=== PATIENT | male | born 1960 ===

== ENCOUNTER 2021-07-08 00:41 | Emergency (ER) | payer OTHER, SELFPAY ==
[2021-07-08 01:19] LABS: #Basophils 0.1 thou/uL (0.0-0.2); #Eosinphils 0.3 thou/uL (0.0-0.7); #Lymphocytes 4.1 thou/uL (1.20-3.40); #Monocytes 0.5 thou/uL (0.11-0.59); #Neutrophils 3.6 thou/uL (1.40-6.50); %Basophils 1.1 % (0.0-1.0); %Eosinophils 3.6 % (0.0-10.0); %Lymphocytes 48.1 % (21.0-51.0); %Monocytes 5.5 % (0.0-10.0); %Neutrophils 41.6 % (42.0-75.0); Hemoglobin 14.9 g/dL (14.0-18.0); Mean Corpuscular HGB CONC 33.4 g/dL (32.0-36.0); Mean Corpuscular Hemoglobin 33.8 pg (27.0-31.0); Mean Platelet Volume 6.8 fL (7.4-10.4); Platelet Count 382 thou/uL (130-400); RBC Distribution Width 13.2 % (11.5-14.5); Red Blood Cell (RBC) Count 4.41 mill/uL (4.70-6.10); White Blood Cell (WBC) Count 8.6 thou/uL (4.8-10.8)
[2021-07-08 02:08] LABS: ALT (SGPT) 29 U/L (8-55); AST (SGOT) 39 U/L (5-34); Albumin 3.8 g/dL (3.5-5.0); Alkaline Phosphatase 51 U/L (40-110); Anion Gap 16 mmol/L (10-20); BUN (Urea Nitrogen) 9 mg/dL (8.4-25.7); Calc. Creatinine Clearance 0 mL/min (70-130); Calcium 9.5 mg/dL (7.8-10.44); Carbon Dioxide 24 mmol/L (22-29); Chloride 111 mmol/L (98-107); Globulin 3.6 g/dL (2.4-3.5); Glucose 114 mg/dL (70-105); Potassium 4.1 mmol/L (3.5-5.1); Protein, Total 7.4 g/dL (6.0-8.3); Sodium 147 mmol/L (136-145)
[2021-07-08 03:28] LABS: Bilirubin, Total Less than 0.2 mg/dL (0.2-1.2)
[2021-07-08 04:55] LABS: Lactic Acid 1.6 mmol/L (0.5-2.2)
== END 2021-07-08 05:10 | disposition home or self-care (01) ==
LOC: ERS 00:41
DX: S06.9X9A Unspecified intracranial injury with loss of consciousness of unspecified duration, initial encounter (principal); G89.29 Other chronic pain; M79.605 Pain in left leg; M79.604 Pain in right leg; I10 Essential (primary) hypertension; E03.9 Hypothyroidism, unspecified; F17.210 Nicotine dependence, cigarettes, uncomplicated; X58.XXXA Exposure to other specified factors, initial encounter
CPT/HCPCS: 36415; 70450; 72125; 80053; 83605; 85025; 85652; 86140

== ENCOUNTER 2022-05-05 21:06 | Emergency (ER) | payer OTHER ==
[2022-05-05] MEDS ORDERED: HYDROcodone/Acetaminophen 5/325 mg Tablet ONE (22:42)
== END 2022-05-06 09:12 | disposition home or self-care (01) ==
LOC: ERS 21:06
DX: M25.551 Pain in right hip (principal); I10 Essential (primary) hypertension; E03.9 Hypothyroidism, unspecified; J44.9 Chronic obstructive pulmonary disease, unspecified; F17.210 Nicotine dependence, cigarettes, uncomplicated; W18.30XA Fall on same level, unspecified, initial encounter
CPT/HCPCS: 72170

== ENCOUNTER 2022-10-18 13:37 | Inpatient (IN) | payer OTHER ==
[~2022-10-18 13:37] MED LIST: Iopamidol-370 76% 500 ML MDV (1 ML CHARGE) ONE
[2022-10-18 14:18] LABS: #Basophils 0.1 thou/uL (0.0-0.2); #Eosinphils 0.2 thou/uL (0.0-0.7); #Monocytes 0.3 thou/uL (0.11-0.59); #Neutrophils 1.7 thou/uL (1.40-6.50); %Basophils 1.4 % (0.0-1.0); %Lymphocytes 47.8 % (21.0-51.0); %Monocytes 7.7 % (0.0-10.0); %Neutrophils 38.9 % (42.0-75.0); Hematocrit 36.8 % (42.0-52.0); Mean Corpuscular HGB CONC 35.3 g/dL (32.0-36.0); Mean Corpuscular Hemoglobin 34.1 pg (27.0-31.0); Mean Corpuscular Volume 96.6 fl (78.0-98.0); Mean Platelet Volume 8.9 fL (7.4-10.4); Platelet Count 232 10x3/uL (130-400); RBC Distribution Width 16.3 % (11.5-14.5); Red Blood Cell (RBC) Count 3.81 mill/uL (4.70-6.10); White Blood Cell (WBC) Count 4.3 10x3/uL (4.8-10.8)
[2022-10-18 14:40] LABS: ALT (SGPT) 53 U/L (8-55); AST (SGOT) 143 U/L (5-34); Albumin 4.3 g/dL (3.5-5.0); Alkaline Phosphatase 57 U/L (40-110); Anion Gap 15 mmol/L (10-20); BUN (Urea Nitrogen) 8 mg/dL (8.4-25.7); Bilirubin, Total 0.3 mg/dL (0.2-1.2); Calc. Creatinine Clearance 0 mL/min (70-130); Calcium 9.2 mg/dL (7.8-10.44); Carbon Dioxide 22 mmol/L (22-29); Chloride 102 mmol/L (98-107); Estimated GFR 67; Globulin 3.9 g/dL (2.4-3.5); Glucose 79 mg/dL (70-105); Potassium 4.1 mmol/L (3.5-5.1); Protein, Total 8.2 g/dL (6.0-8.3); Sodium 135 mmol/L (136-145)
[2022-10-18 18:40] LABS: Acetaminophen Less than 10 mcg/mL (10.0-30.0); Alcohol 225.2 mg/dL (Less than 10); Salicylate Less than 8.0 mg/dL (15.0-30.0)
[2022-10-18 18:49] LABS: Amphetamine Not Detected (NotDetected); Barbiturates Screen Not Detected (NotDetected); Benzodiazepine Screen Not Detected (NotDetected); Cocaine Metabolite Screen Not Detected (NotDetected); Methadone Not Detected (NotDetected); Methamphetamine Not Detected (NotDetected); Opiate Screen Not Detected (NotDetected); Oxycodone Screen Not Detected (NotDetected); Phencyclidine (PCP) Not Detected (NotDetected); THC/Cannabinoid Screen Not Detected (NotDetected); Tricyclic Screen Not Detected (NotDetected)
[2022-10-18 18:49] LABS: Bacteria/HPF 4+ HPF (None Seen); Bilirubin Negative (Negative); Blood, Urine Negative (Negative); CAUTI Indications for Culture Pelvic or flank pain; Clarity Clear (Clear); Glucose, Urine (Dipstick) Normal (Negative); Ketone, Urine Negative (Negative); Leukocyte 75 Leu/uL (Negative); Nitrite 2+ (Negative); Protein, Urine (Dipstick) Negative (Neg-Trace); RBC/HPF 0-3 HPF (0-3); Specific Gravity, Urine 1.005 (1.002-1.036); Squamous Epithelial 0-3 HPF (0-3); Urobilinogen Normal mg/dL (Less than 2); pH, Urine 6.5 (5.0-9.0)
[2022-10-18 18:50] LABS: Urine Culture Reflex No No
[2022-10-18] MEDS ORDERED: Loperamide HCl 2 MG CAP PO PRN ×2 (19:16)
[2022-10-18] MEDS ORDERED: Lorazepam 2 MG/ML VIAL IM PRN (19:16)
[2022-10-18] MEDS ORDERED: Ondansetron ODT 4 MG TAB PO PRN (19:16)
[2022-10-18] MEDS ORDERED: Lorazepam 1 MG TAB PO PRN (19:16)
[2022-10-18] MEDS ORDERED: Electrolyte Replacement Protocol 1 EACH FS SCH (19:30)
[2022-10-18 20:06] VITALS: BMI 28.8
[2022-10-18] MEDS ORDERED: Sodium Chloride 0.9% 1,000 ML IV SCH (20:30)
[2022-10-18] MEDS: cefTRIAXone\\ROCEPHIN 1 GM in Sodium Chloride 0.9% 100 ML IVPB SCH (20:31)
[2022-10-18] MEDS: Thiamine HCl 200 MG/2 ML VIAL SLOW IVP SCH (20:32)
[2022-10-18] MEDS: Famotidine 20 MG TAB PO SCH (20:32)
[2022-10-18 20:52] LABS: Magnesium 1.8 mg/dL (1.6-2.6); Phosphorus 2.1 mg/dL (2.3-4.7)
[2022-10-18 22:11] LABS: SARS-CoV-2 NAA Rapid Test Not Detected (NotDetected)
[2022-10-19] MEDS: Melatonin 3 MG TAB PO PRN (00:12)
[2022-10-19] MEDS ORDERED: Magnesium 2 GM/50 ML(in water) 2 GM in Premix Bag 1 BAG IVPB SCH (08:00)
[2022-10-19 08:17] LABS: #Basophils 0.1 thou/uL (0.0-0.2); #Eosinphils 0.1 thou/uL (0.0-0.7); #Monocytes 0.4 thou/uL (0.11-0.59); #Neutrophils 3.6 thou/uL (1.40-6.50); %Basophils 0.8 % (0.0-1.0); %Eosinophils 1.7 % (0.0-10.0); %Lymphocytes 30.2 % (21.0-51.0); %Monocytes 6.8 % (0.0-10.0); %Neutrophils 60.2 % (42.0-75.0); Hematocrit 36.7 % (42.0-52.0); Hemoglobin 12.9 g/dL (14.0-18.0); Mean Corpuscular HGB CONC 35.1 g/dL (32.0-36.0); Mean Corpuscular Hemoglobin 33.3 pg (27.0-31.0); Mean Corpuscular Volume 94.8 fl (78.0-98.0); Mean Platelet Volume 9.2 fL (7.4-10.4); Platelet Count 210 10x3/uL (130-400); RBC Distribution Width 15.9 % (11.5-14.5); Red Blood Cell (RBC) Count 3.87 mill/uL (4.70-6.10); White Blood Cell (WBC) Count 6.1 10x3/uL (4.8-10.8)
[2022-10-19 08:23] LABS: Hemoglobin A1c 4.9 % (4.0-6.0)
[2022-10-19 08:32] LABS: Anion Gap 17 mmol/L (10-20); BUN (Urea Nitrogen) 7 mg/dL (8.4-25.7); Calc. Creatinine Clearance 86 mL/min (70-130); Calcium 9.4 mg/dL (7.8-10.44); Carbon Dioxide 22 mmol/L (22-29); Chloride 103 mmol/L (98-107); Estimated GFR 64; Glucose 114 mg/dL (70-105); Potassium 4.8 mmol/L (3.5-5.1); Sodium 137 mmol/L (136-145)
[2022-10-19] MEDS ORDERED: Multivit, Therapeutic 1 TAB PO SCH (09:00)
[2022-10-19] MEDS: Folic Acid 1 MG TAB PO SCH (09:49)
[2022-10-19] MEDS: Famotidine 20 MG TAB PO SCH ×2 (09:49→20:56)
[2022-10-19] MEDS: Lorazepam 2 MG/ML VIAL SLOW IVP SCH ×2 (11:30→17:56)
[2022-10-19] MEDS: Multivitamins, Adult 10 ML, Folic Acid 1 MG, Thiamine HCl 100 MG in Dextrose 5 %-0.45 %... IV SCH (11:30)
[2022-10-19 11:50] LABS: Syphilis Antibody Nonreactive (Nonreactive); Syphilis Antibody Index 0.14 S/CO (<1.00 Non-Reactive)
[2022-10-19] MEDS ORDERED: Lorazepam 1 MG TAB PO PRN (19:16)
[2022-10-19] MEDS: Thiamine HCl 200 MG/2 ML VIAL SLOW IVP SCH (20:56)
[2022-10-19] MEDS: cefTRIAXone\\ROCEPHIN 1 GM in Sodium Chloride 0.9% 100 ML IVPB SCH (20:57)
[2022-10-20] MEDS: Lorazepam 2 MG/ML VIAL SLOW IVP SCH ×5 (00:49→23:53)
[2022-10-20 07:42] LABS: #Eosinphils 0.2 thou/uL (0.0-0.7); #Monocytes 0.4 thou/uL (0.11-0.59); #Neutrophils 2.5 thou/uL (1.40-6.50); %Basophils 0.8 % (0.0-1.0); %Eosinophils 2.9 % (0.0-10.0); %Monocytes 7.6 % (0.0-10.0); %Neutrophils 48.3 % (42.0-75.0); Hematocrit 36.8 % (42.0-52.0); Mean Corpuscular HGB CONC 35.3 g/dL (32.0-36.0); Mean Corpuscular Hemoglobin 33.9 pg (27.0-31.0); Mean Corpuscular Volume 95.8 fl (78.0-98.0); Mean Platelet Volume 9.8 fL (7.4-10.4); Platelet Count 180 10x3/uL (130-400); RBC Distribution Width 15.6 % (11.5-14.5); Red Blood Cell (RBC) Count 3.84 mill/uL (4.70-6.10); White Blood Cell (WBC) Count 5.3 10x3/uL (4.8-10.8)
[2022-10-20 08:07] LABS: ALT (SGPT) 45 U/L (8-55); AST (SGOT) 91 U/L (5-34); Albumin 3.9 g/dL (3.5-5.0); Alkaline Phosphatase 60 U/L (40-110); Anion Gap 15 mmol/L (10-20); BUN (Urea Nitrogen) 7 mg/dL (8.4-25.7); Bilirubin, Total 0.4 mg/dL (0.2-1.2); Calc. Creatinine Clearance 96 mL/min (70-130); Calcium 9.6 mg/dL (7.8-10.44); Carbon Dioxide 23 mmol/L (22-29); Chloride 100 mmol/L (98-107); Estimated GFR 73; Globulin 3.9 g/dL (2.4-3.5); Glucose 80 mg/dL (70-105); Potassium 4.1 mmol/L (3.5-5.1); Protein, Total 7.8 g/dL (6.0-8.3); Sodium 134 mmol/L (136-145)
[2022-10-20] MEDS: Famotidine 20 MG TAB PO SCH ×2 (08:15→20:51)
[2022-10-20] MEDS: Folic Acid 1 MG TAB PO SCH (08:15)
[2022-10-20] MEDS ORDERED: hydrALAZINE 20 MG/ML VIAL SLOW IVP SCH (08:30)
[2022-10-20 11:18] LABS: Campy jejuni + coli by PCR Negative (Negative); STEC Shiga Toxin 1+2 Negative (Negative); Salmonella spp. by PCR Negative (Negative); Shigella spp + EIEC by PCR Negative (Negative)
[2022-10-20] MEDS: Multivitamins, Adult 10 ML, Folic Acid 1 MG, Thiamine HCl 100 MG in Dextrose 5 %-0.45 %... IV SCH (12:11)
[2022-10-20] MEDS ORDERED: Lorazepam 1 MG TAB PO PRN (19:16)
[2022-10-20] MEDS: Thiamine HCl 200 MG/2 ML VIAL SLOW IVP SCH (20:51)
[2022-10-20] MEDS: cefTRIAXone\\ROCEPHIN 1 GM in Sodium Chloride 0.9% 100 ML IVPB SCH (20:52)
[2022-10-21] MEDS: Lorazepam 2 MG/ML VIAL SLOW IVP SCH ×3 (06:14→17:42)
[2022-10-21 07:15] LABS: ALT (SGPT) 35 U/L (8-55); AST (SGOT) 62 U/L (5-34); Alkaline Phosphatase 56 U/L (40-110); Anion Gap 13 mmol/L (10-20); BUN (Urea Nitrogen) 8 mg/dL (8.4-25.7); Bilirubin, Total 0.2 mg/dL (0.2-1.2); Calc. Creatinine Clearance 86 mL/min (70-130); Calcium 9.7 mg/dL (7.8-10.44); Carbon Dioxide 25 mmol/L (22-29); Chloride 97 mmol/L (98-107); Estimated GFR 63; Globulin 3.7 g/dL (2.4-3.5); Glucose 86 mg/dL (70-105); Potassium 3.6 mmol/L (3.5-5.1); Protein, Total 7.7 g/dL (6.0-8.3); Sodium 131 mmol/L (136-145)
[2022-10-21] MEDS: Famotidine 20 MG TAB PO SCH ×2 (08:02→20:14)
[2022-10-21] MEDS: Acetaminophen 325 MG TAB PO PRN ×2 (08:02→20:15)
[2022-10-21] MEDS: Folic Acid 1 MG TAB PO SCH (08:02)
[2022-10-21] MEDS: hydrALAZINE 20 MG/ML VIAL SLOW IVP PRN ×2 (08:09→17:16)
[2022-10-21] MEDS: Multivitamins, Adult 10 ML, Folic Acid 1 MG, Thiamine HCl 100 MG in Dextrose 5 %-0.45 %... IV SCH (12:05)
[2022-10-21] MEDS ORDERED: Metoprolol Tartrate 25 MG TAB PO SCH (14:00)
[2022-10-21] MEDS ORDERED: Nicotine 14 MG PATCH TOP SCH (17:00)
[2022-10-21] MEDS ORDERED: Lorazepam 0.5 MG TAB PO PRN (19:16)
[2022-10-21] MEDS ORDERED: Thiamine 100 MG TAB PO SCH (19:30)
[2022-10-21] MEDS: cefTRIAXone\\ROCEPHIN 1 GM in Sodium Chloride 0.9% 100 ML IVPB SCH (20:13)
[2022-10-21] MEDS: Metoprolol Tartrate 25 MG TAB PO SCH (20:15)
[2022-10-21] MEDS: Melatonin 3 MG TAB PO PRN (21:20)
[2022-10-22] MEDS: Lorazepam 2 MG/ML VIAL SLOW IVP SCH ×4 (00:06→18:05)
[2022-10-22] MEDS: hydrALAZINE 20 MG/ML VIAL SLOW IVP PRN (06:10)
[2022-10-22] MEDS: Multivitamin W/ Minerals 1 TAB PO SCH (08:16)
[2022-10-22] MEDS: Metoprolol Tartrate 25 MG TAB PO SCH ×2 (08:16→21:08)
[2022-10-22] MEDS: Thiamine 100 MG TAB PO SCH (08:16)
[2022-10-22] MEDS: Famotidine 20 MG TAB PO SCH ×2 (08:16→21:07)
[2022-10-22] MEDS: Folic Acid 1 MG TAB PO SCH (08:16)
[2022-10-22] MEDS: Nicotine 14 MG PATCH TOP SCH (18:04)
[2022-10-22] MEDS: cefTRIAXone\\ROCEPHIN 1 GM in Sodium Chloride 0.9% 100 ML IVPB SCH (21:07)
[2022-10-23] MEDS: Lorazepam 2 MG/ML VIAL SLOW IVP SCH ×2 (01:18→06:51)
[2022-10-23] MEDS: Famotidine 20 MG TAB PO SCH ×2 (08:03→20:42)
[2022-10-23] MEDS: Metoprolol Tartrate 25 MG TAB PO SCH ×2 (08:03→20:43)
[2022-10-23] MEDS: Multivitamin W/ Minerals 1 TAB PO SCH (08:03)
[2022-10-23] MEDS: Thiamine 100 MG TAB PO SCH (08:03)
[2022-10-23] MEDS: Folic Acid 1 MG TAB PO SCH (08:03)
[2022-10-23] MEDS ORDERED: Lorazepam 2 MG/ML VIAL SLOW IVP PRN (10:24)
[2022-10-23] MEDS: Nicotine 14 MG PATCH TOP SCH (17:31)
[2022-10-23] MEDS: Melatonin 3 MG TAB PO PRN (20:42)
[2022-10-23] MEDS: Acetaminophen 325 MG TAB PO PRN (20:43)
[2022-10-24] MEDS: Thiamine 100 MG TAB PO SCH (08:53)
[2022-10-24] MEDS: Metoprolol Tartrate 25 MG TAB PO SCH (08:53)
[2022-10-24] MEDS: Multivitamin W/ Minerals 1 TAB PO SCH (08:53)
[2022-10-24] MEDS: Folic Acid 1 MG TAB PO SCH (08:53)
[2022-10-24] MEDS: Famotidine 20 MG TAB PO SCH (08:53)
[2022-10-24 10:41] LABS: Thyroid Stimulating Hormone 56.4921 uIU/mL (0.35-4.94)
[2022-10-24 17:16] VITALS: TEMP 98.6
[2022-10-24 17:17] VITALS: BP 155/85
== END 2022-10-24 17:10 | disposition home or self-care (01) | DRG 897 ==
LOC: ERS 13:37 → T4-A 18:27 → OBSVTOIN 10-19 08:57
PROVIDERS: ADMIT Family Medicine; ATTEND Family Medicine
DX: F10.129 Alcohol abuse with intoxication, unspecified (principal); N39.0 Urinary tract infection, site not specified; K52.9 Noninfective gastroenteritis and colitis, unspecified; E11.9 Type 2 diabetes mellitus without complications; F31.9 Bipolar disorder, unspecified; E03.9 Hypothyroidism, unspecified; I10 Essential (primary) hypertension; J44.9 Chronic obstructive pulmonary disease, unspecified; Z90.49 Acquired absence of other specified parts of digestive tract; Z98.890 Other specified postprocedural states; F17.210 Nicotine dependence, cigarettes, uncomplicated; Z88.5 Allergy status to narcotic agent; Z20.822 Contact with and (suspected) exposure to COVID-19; R74.01 Elevation of levels of liver transaminase levels
CPT/HCPCS: 36415; 36416; 74177; 80048; 80053; 80306; 80307; 81001; 82607; 83036; 83690; 83735; 84100; 84443; 85025; 86780; 87324; 87328; 87329; 87449; 87505; J0360; J0696; J2060; J3411; J3475; J3490; J7042; J7050; Q0162; Q9967

== ENCOUNTER 2023-08-13 15:39 | Emergency (ER) | payer OTHER ==
[2023-08-13 17:28] LABS: Alcohol Less than 10.0 mg/dL (Less than 10)
[2023-08-13 17:31] LABS: #Basophils Less than 0.03 10x3/uL (0.0-0.2); #Eosinphils Less than 0.03 10x3/uL (0.0-0.7); %Basophils 0.1 % (0.0-1.0); %Eosinophils 0.3 % (0.0-10.0); %Lymphocytes 21.7 % (21.0-51.0); %Neutrophils 73.5 % (42.0-75.0); ALT (SGPT) 52 U/L (8-55); AST (SGOT) 99 U/L (5-34); Albumin 3.8 g/dL (3.4-4.8); Alkaline Phosphatase 87 U/L (40-110); Anion Gap 16 mmol/L (10-20); BUN (Urea Nitrogen) 5 mg/dL (8.4-25.7); Bilirubin, Total 0.6 mg/dL (0.2-1.2); Calc. Creatinine Clearance 0 mL/min (70-130); Calcium 8.6 mg/dL (7.8-10.44); Carbon Dioxide 28 mmol/L (23-31); Chloride 91 mmol/L (98-107); Estimated GFR 83; Globulin 3.8 g/dL (2.4-3.5); Glucose 100 mg/dL (80-115); Hematocrit 39.2 % (42.0-52.0); Hemoglobin 14.6 g/dL (14.0-18.0); Lipase 128 U/L (8-78); Mean Corpuscular HGB CONC 37.2 g/dL (32.0-36.0); Mean Corpuscular Hemoglobin 31.9 pg (27.0-31.0); Mean Corpuscular Volume 85.6 fL (78.0-98.0); Mean Platelet Volume 10.4 fL (7.4-10.4); Platelet Count 97 10x3/uL (130-400); Potassium 3.8 mmol/L (3.5-5.1); Protein, Total 7.6 g/dL (5.8-8.1); Red Blood Cell (RBC) Count 4.58 mill/uL (4.70-6.10); Sodium 131 mmol/L (136-145)
[2023-08-13 17:36] LABS: Troponin I 0.012 ng/mL (< 0.028)
[2023-08-13 18:12] LABS: Bacteria/HPF None Seen HPF (None Seen); Bilirubin Negative (Negative); Blood, Urine 1+ (Negative); CAUTI Indications for Culture Pelvic or flank pain; Clarity Clear (Clear); Glucose, Urine (Dipstick) Normal (Negative); Ketone, Urine Negative (Negative); Leukocyte Negative Leu/uL (Negative); Nitrite Negative (Negative); Protein, Urine (Dipstick) 50 mg/dL (Neg-Trace); RBC/HPF 0-3 HPF (0-3); Specific Gravity, Urine 1.005 (1.002-1.036); Squamous Epithelial 0-3 HPF (0-3); Urobilinogen Normal mg/dL (Less than 2); WBC/HPF 0-3 HPF (0-3); pH, Urine 7.5 (5.0-9.0)
[2023-08-13 18:26] LABS: Urine Culture Reflex No No
== END 2023-08-13 19:09 | disposition home or self-care (01) ==
LOC: ERS 15:39
DX: R19.7 Diarrhea, unspecified (principal); E86.0 Dehydration; E87.1 Hypo-osmolality and hyponatremia; D69.6 Thrombocytopenia, unspecified; I10 Essential (primary) hypertension; E03.9 Hypothyroidism, unspecified; E11.9 Type 2 diabetes mellitus without complications; F17.210 Nicotine dependence, cigarettes, uncomplicated; Z79.899 Other long term (current) drug therapy
CPT/HCPCS: 36415; 80053; 80307; 81001; 83605; 83690; 84484; 85025; 93005; 94760; 96360

== ENCOUNTER 2023-08-28 04:10 | Inpatient (IN) | payer OTHER ==
[2023-08-28] MEDS ORDERED: Ipratropium/Albuterol 3 ML NEB ONE (04:20)
[2023-08-28] MEDS ORDERED: Albuterol 2.5 MG (0.5 mL) NEB ONE (04:20)
[2023-08-28] MEDS ORDERED: methylPREDNISolone Sod Succ/PF 125 MG/2 ML VIAL ONE (04:47)
[2023-08-28 05:24] LABS: Base Excess 1.2 mEq/L (-2.0 to +3.0); Calcium, Ionized (venous) 1.01 mmol/L (1.16-1.32); Chloride (VBG) 84 mmol/L (98-106); Hematocrit-VBG 39 % (42.0-52.0); Hemoglobin (Hb) 13.4 g/dL (13.1-17.2); Potassium (VBG) 3.05 mmol/L (3.70-5.30); Sodium 122 mmol/L (133-146); pH (venous) 7.261 (7.32-7.43)
[2023-08-28 05:27] LABS: #Basophils 0.03 10x3/uL (0.0-0.2); %Basophils 0.5 % (0.0-1.0); %Eosinophils 1.2 % (0.0-10.0); %Lymphocytes 19.4 % (21.0-51.0); %Neutrophils 71.1 % (42.0-75.0); Hematocrit 33.6 % (42.0-52.0); Hemoglobin 12.6 g/dL (14.0-18.0); Mean Corpuscular HGB CONC 37.5 g/dL (32.0-36.0); Mean Corpuscular Hemoglobin 33.2 pg (27.0-31.0); Mean Corpuscular Volume 88.7 fL (78.0-98.0); Platelet Count 192 10x3/uL (130-400); RBC Distribution Width 15.9 % (11.5-14.5); Red Blood Cell (RBC) Count 3.79 mill/uL (4.70-6.10)
[2023-08-28] MEDS ORDERED: Magnesium 2 GM/50 ML BAG (IN WATER) ONE (05:28)
[2023-08-28] MEDS ORDERED: LevoFLOXacin 750 mg/D5W 150 ml Premix Bag ONE (05:28)
[2023-08-28 05:47] LABS: ALT (SGPT) 20 U/L (8-55); AST (SGOT) 49 U/L (5-34); Albumin 3.4 g/dL (3.4-4.8); Alkaline Phosphatase 57 U/L (40-110); Anion Gap 12 mmol/L (10-20); BUN (Urea Nitrogen) Less than 4 mg/dL (8.4-25.7); Bilirubin, Total 0.4 mg/dL (0.2-1.2); Calc. Creatinine Clearance 0 mL/min (70-130); Carbon Dioxide 28 mmol/L (23-31); Chloride 81 mmol/L (98-107); Estimated GFR 97; Globulin 3.6 g/dL (2.4-3.5); Glucose 93 mg/dL (80-115); Lipase 91 U/L (8-78); Magnesium 1.2 mg/dL (1.6-2.6); Potassium 2.9 mmol/L (3.5-5.1); Sodium 118 mmol/L (136-145)
[2023-08-28 05:48] LABS: Troponin I Less than 0.010 ng/mL (< 0.028)
[2023-08-28 06:31] LABS: Prothrombin Time 13.3 sec (12.0-14.7)
[2023-08-28 06:32] LABS: PTT 31.9 sec (22.9-36.1)
[2023-08-28 06:34] LABS: D-Dimer Test 1.58 mcg/mL (0.27-0.43)
[2023-08-28] MEDS ORDERED: Ondansetron PF 4 MG/2 ML Vial IVP PRN (08:53)
[2023-08-28] MEDS ORDERED: Albuterol 2.5 MG (3 mL) NEB NEB PRN (08:54)
[2023-08-28] MEDS ORDERED: Electrolyte Replacement Protocol 1 EACH FS SCH (09:30)
[2023-08-28] MEDS ORDERED: Potassium Chloride 20 MEQ (100 mL) BAG ONE (10:04)
[2023-08-28] MEDS: Potassium Chloride 20 MEQ in Premix 1 BAG IVPB SCH (10:26)
[2023-08-28 10:51] LABS: Actual Bicarbonate (HCO3a) 31.7 mEq/L (22-28); Base Excess (BEa) 4.8 mEq/L (-2.0 to +3.0); CO2 Tension 57.2 mmHg (35.0-45.0); Calcium, Ionized (arterial) 1.04 mmol/L (1.12-1.30); Carboxyhemoglobin (COHb) 3.2 gm% (0.0-3.0); Hematocrit-ABG 38 % (42.0-52.0); Hemoglobin (Hb) 12.8 g/dL (14.0-18.0); O2 Tension (PaO2), arterial 79.7 mmHg (> 80.0); Potassium - ABG Lab 3.35 mmol/L (3.70-5.30); pH, Arterial 7.361 (7.35-7.45)
[2023-08-28 10:52] LABS: Puncture Site RRA
[2023-08-28] MEDS ORDERED: Iopamidol-370 76% 500 ML MDV (1 ML CHARGE) ONE (12:10)
[2023-08-28 12:11] LABS: Anion Gap 18 mmol/L (10-20); BUN (Urea Nitrogen) 4 mg/dL (8.4-25.7); Calc. Creatinine Clearance 0 mL/min (70-130); Calcium 8.1 mg/dL (7.8-10.44); Carbon Dioxide 22 mmol/L (23-31); Chloride 86 mmol/L (98-107); Estimated GFR 89; Glucose 94 mg/dL (80-115); Potassium 3.6 mmol/L (3.5-5.1); Sodium 122 mmol/L (136-145)
[2023-08-28 12:33] LABS: Phosphorus 3.2 mg/dL (2.3-4.7)
[2023-08-28 12:46] LABS: Troponin I Less than 0.010 ng/mL (< 0.028)
[2023-08-28] MEDS: Ipratropium/Albuterol 3 ML NEB NEB SCH (12:53)
[2023-08-28] MEDS: Potassium Chloride 20 MEQ TAB PO SCH (12:57)
[2023-08-28] MEDS: Thiamine HCl 200 MG/2 ML VIAL SLOW IVP SCH (13:19)
[2023-08-28] MEDS: Magnesium 2 GM/50 ML(in water) 2 GM in Premix 1 BAG IVPB SCH ×2 (13:20→21:24)
[2023-08-28] MEDS: Enoxaparin 40 MG (0.4 mL) SYRINGE SC SCH (13:20)
[2023-08-28 13:26] LABS: Creatinine, Urine 19.66 mg/dL (63-166); Sodium, Urine Less than 20 mmol/L (Not Available)
[2023-08-28 13:27] LABS: Amphetamine Not Detected (NotDetected); Barbiturates Screen Not Detected (NotDetected); Benzodiazepine Screen Not Detected (NotDetected); Cocaine Metabolite Screen Not Detected (NotDetected); Methadone Not Detected (NotDetected); Methamphetamine Not Detected (NotDetected); Opiate Screen Detected (NotDetected); Oxycodone Screen Not Detected (NotDetected); Phencyclidine (PCP) Not Detected (NotDetected); THC/Cannabinoid Screen Not Detected (NotDetected); Tricyclic Screen Not Detected (NotDetected)
[2023-08-28 14:27] LABS: Troponin I Less than 0.010 ng/mL (< 0.028)
[2023-08-28] MEDS: methylPREDNISolone Sod Succ 40 MG VIAL IVP SCH (14:33)
[2023-08-28] MEDS: Furosemide 40 MG (4 mL) VIAL SLOW IVP SCH (14:33)
[2023-08-28 14:58] LABS: Anion Gap 18 mmol/L (10-20); BUN (Urea Nitrogen) 4 mg/dL (8.4-25.7); Calc. Creatinine Clearance 116 mL/min (70-130); Calcium 8.9 mg/dL (7.8-10.44); Carbon Dioxide 25 mmol/L (23-31); Chloride 85 mmol/L (98-107); Estimated GFR 86; Glucose 100 mg/dL (80-115); Magnesium 1.6 mg/dL (1.6-2.6); Potassium 3.4 mmol/L (3.5-5.1); Sodium 125 mmol/L (136-145)
[2023-08-28] MEDS ORDERED: Dextrose 5% in Water 1,000 ML IV PRN (16:47)
[2023-08-28] MEDS ORDERED: Glucagon 1 MG/ML KIT IM PRN (16:47)
[2023-08-28] MEDS ORDERED: Insulin Regular, Human 100 UNIT/ML 10 ML VIAL SC PRN (16:47)
[2023-08-28] MEDS ORDERED: Dextrose 50% Abboject 50 ML SYRINGE SLOW IVP PRN (16:47)
[2023-08-28] MEDS: Insulin Regular, Human 100 UNIT/ML 10 ML VIAL SC PRN (17:21)
[2023-08-28 17:55] LABS: Free T4 (Free Thyroxine) Less than 0.42 ng/dL (0.70-1.48)
[2023-08-28 18:33] LABS: Anion Gap 11 mmol/L (10-20); BUN (Urea Nitrogen) 4 mg/dL (8.4-25.7); Calc. Creatinine Clearance 100 mL/min (70-130); Calcium 8.4 mg/dL (7.8-10.44); Carbon Dioxide 33 mmol/L (23-31); Chloride 86 mmol/L (98-107); Estimated GFR 72; Glucose 203 mg/dL (80-115); Potassium 3.3 mmol/L (3.5-5.1); Sodium 127 mmol/L (136-145)
[2023-08-28 22:59] LABS: Anion Gap 14 mmol/L (10-20); BUN (Urea Nitrogen) 6 mg/dL (8.4-25.7); Calc. Creatinine Clearance 85 mL/min (70-130); Calcium 8.5 mg/dL (7.8-10.44); Carbon Dioxide 33 mmol/L (23-31); Chloride 88 mmol/L (98-107); Estimated GFR 59; Glucose 185 mg/dL (80-115); Potassium 3.6 mmol/L (3.5-5.1); Sodium 131 mmol/L (136-145)
[2023-08-29] MEDS: Melatonin 3 MG TAB PO SCH (00:14)
[2023-08-29] MEDS: Levothyroxine Sodium 100 MCG TAB PO SCH (05:40)
[2023-08-29] MEDS: LevoFLOXacin 750 mg/D5W 750 MG in Premix 1 BAG IVPB SCH (06:07)
[2023-08-29 07:46] VITALS: BMI 28.9
[2023-08-29] MEDS: Folic Acid 1 MG TAB PO SCH (08:31)
[2023-08-29] MEDS: Multivit, Therapeutic 1 TAB PO SCH (08:31)
[2023-08-29 09:13] LABS: Anisocytosis MARKED = >30 cells HPF (0-5); Band 1 % (5-11); Large Platelets 2.9 % (0-5); Lymphocytes 9 % (21-51); Macrocytosis MARKED = >30 cells HPF (0-5); Monocytes 3 % (0-10); Neutrophil 88 % (42-75); Ovalocytes SLIGHT = 2-5 cells HPF (0-1); Platelet Adequacy Comment Platelets Decreased; Polychromasia SLIGHT = 2-3 cells HPF (0-2); Target Cells SLIGHT = 2-5 cells HPF (0-1)
[2023-08-29 09:36] LABS: Hematocrit 37.3 % (42.0-52.0); Hemoglobin 12.9 g/dL (14.0-18.0); Mean Corpuscular Hemoglobin 33.7 pg (27.0-31.0); Mean Corpuscular Volume 96.1 fL (78.0-98.0); Mean Platelet Volume 10.4 fL (7.4-10.4); Platelet Count 121 10x3/uL (130-400); RBC Distribution Width 17.5 % (11.5-14.5); Red Blood Cell (RBC) Count 3.89 mill/uL (4.70-6.10)
[2023-08-29 10:27] LABS: Anion Gap 16 mmol/L (10-20); BUN (Urea Nitrogen) 7 mg/dL (8.4-25.7); Calc. Creatinine Clearance 97 mL/min (70-130); Carbon Dioxide 30 mmol/L (23-31); Chloride 91 mmol/L (98-107); Estimated GFR 74; Glucose 140 mg/dL (80-115); Potassium 3.6 mmol/L (3.5-5.1); Sodium 133 mmol/L (136-145)
[2023-08-29] MEDS: Amlodipine 10 MG TAB PO SCH (10:37)
[2023-08-29] MEDS: Lactated Ringer's 1,000 ML IV SCH (10:38)
[2023-08-29] MEDS: Ipratropium/Albuterol 3 ML NEB NEB SCH (13:17)
[2023-08-29] MEDS: Magnesium 2 GM/50 ML(in water) 2 GM in Premix 1 BAG IVPB SCH (13:33)
[2023-08-29] MEDS: Acetaminophen 325 MG TAB PO PRN (16:38)
[2023-08-29 20:41] LABS: Glucose 185 mg/dL (80-115)
[2023-08-30 00:21] LABS: Glucose 191 mg/dL (80-115)
[2023-08-30 06:03] LABS: #Basophils Less than 0.03 10x3/uL (0.0-0.2); #Eosinphils Less than 0.03 10x3/uL (0.0-0.7); %Basophils 0.1 % (0.0-1.0); %Lymphocytes 6.3 % (21.0-51.0); %Monocytes 3.7 % (0.0-10.0); %Neutrophils 88.5 % (42.0-75.0); Hematocrit 32.1 % (42.0-52.0); Hemoglobin 11.2 g/dL (14.0-18.0); Mean Corpuscular HGB CONC 34.9 g/dL (32.0-36.0); Mean Corpuscular Hemoglobin 33.3 pg (27.0-31.0); Mean Corpuscular Volume 95.5 fL (78.0-98.0); Mean Platelet Volume 9.2 fL (7.4-10.4); Platelet Count 289 10x3/uL (130-400); RBC Distribution Width 18.1 % (11.5-14.5); Red Blood Cell (RBC) Count 3.36 mill/uL (4.70-6.10)
[2023-08-30 06:20] LABS: Anion Gap 12 mmol/L (10-20); BUN (Urea Nitrogen) 8 mg/dL (8.4-25.7); Calc. Creatinine Clearance 116 mL/min (70-130); Calcium 9.1 mg/dL (7.8-10.44); Carbon Dioxide 31 mmol/L (23-31); Chloride 96 mmol/L (98-107); Estimated GFR 88; Glucose 162 mg/dL (80-115); Magnesium 1.8 mg/dL (1.6-2.6); Sodium 135 mmol/L (136-145)
[2023-08-30] MEDS: Amlodipine 10 MG TAB PO SCH (08:54)
[2023-08-30] MEDS: Magnesium 2 GM/50 ML(in water) 2 GM in Premix 1 BAG IVPB SCH (08:55)
[2023-08-30] MEDS ORDERED: Lorazepam 1 MG TAB PO PRN (09:26)
[2023-08-30 12:29] LABS: Glucose 224 mg/dL (80-115)
[2023-08-30] MEDS: methylPREDNISolone Sod Succ 40 MG VIAL IVP SCH (20:04)
[2023-08-31] MEDS: hydrALAZINE 20 MG/ML VIAL SLOW IVP SCH (00:58)
[2023-08-31] MEDS: Guaifenesin DM 100-10/5 ML UDCUP PO PRN (00:58)
[2023-08-31 05:12] LABS: #Basophils Less than 0.03 10x3/uL (0.0-0.2); #Eosinphils Less than 0.03 10x3/uL (0.0-0.7); %Basophils 0.1 % (0.0-1.0); %Lymphocytes 9.1 % (21.0-51.0); %Monocytes 5.6 % (0.0-10.0); %Neutrophils 83.6 % (42.0-75.0); Hematocrit 33.2 % (42.0-52.0); Hemoglobin 11.7 g/dL (14.0-18.0); Mean Corpuscular HGB CONC 35.2 g/dL (32.0-36.0); Mean Corpuscular Hemoglobin 32.3 pg (27.0-31.0); Mean Corpuscular Volume 91.7 fL (78.0-98.0); Mean Platelet Volume 8.7 fL (7.4-10.4); Platelet Count 319 10x3/uL (130-400); RBC Distribution Width 18.4 % (11.5-14.5); Red Blood Cell (RBC) Count 3.62 mill/uL (4.70-6.10)
[2023-08-31 05:31] VITALS: BMI 30.7
[2023-08-31 05:44] LABS: Anion Gap 13 mmol/L (10-20); BUN (Urea Nitrogen) 10 mg/dL (8.4-25.7); Calc. Creatinine Clearance 123 mL/min (70-130); Calcium 9.4 mg/dL (7.8-10.44); Carbon Dioxide 31 mmol/L (23-31); Chloride 93 mmol/L (98-107); Estimated GFR 92; Glucose 165 mg/dL (80-115); Magnesium 1.7 mg/dL (1.6-2.6); Potassium 4.1 mmol/L (3.5-5.1); Sodium 133 mmol/L (136-145)
[2023-08-31] MEDS: Thiamine 100 MG TAB PO SCH (07:58)
[2023-08-31] MEDS: Magnesium 2 GM/50 ML(in water) 2 GM in Premix 1 BAG IVPB SCH (09:34)
[2023-09-01] MEDS: HYDROcodone/Acetaminophen 10/325 mg Tablet PO SCH (01:20)
[2023-09-01] MEDS: hydrALAZINE 20 MG/ML VIAL SLOW IVP SCH (02:31)
[2023-09-01] MEDS: hydrOXYzine 25 MG TAB PO SCH (04:27)
[2023-09-01] MEDS: Metoprolol Tartrate 50 MG TAB PO SCH (08:54)
[2023-09-02 12:00] VITALS: BP 170/92; TEMP 98.1
== END 2023-09-02 12:32 | disposition home or self-care (01) | DRG 177 ==
LOC: ERS 04:10 → ERHOLD 08:47 → CCU 11:49 → T4-B 08-29 17:24
PROVIDERS: ADMIT Internal Medicine; ATTEND Internal Medicine
PROC: 4A033R1 Measurement of Arterial Saturation, Peripheral, Percutaneous Approach (ICD-10-PCS; principal; 2023-08-28)
PROC: 5A09357 Assistance with Respiratory Ventilation, Less than 24 Consecutive Hours, Continuous Positive Airway Pressure (ICD-10-PCS; 2023-08-28)
DX: J15.69 Pneumonia due to other Gram-negative bacteria (principal); J81.0 Acute pulmonary edema; J96.01 Acute respiratory failure with hypoxia; J96.02 Acute respiratory failure with hypercapnia; E87.1 Hypo-osmolality and hyponatremia; J44.1 Chronic obstructive pulmonary disease with (acute) exacerbation; N17.9 Acute kidney failure, unspecified; Z79.899 Other long term (current) drug therapy; I10 Essential (primary) hypertension; E11.9 Type 2 diabetes mellitus without complications; E03.9 Hypothyroidism, unspecified; Z79.4 Long term (current) use of insulin; Z88.8 Allergy status to other drugs, medicaments and biological substances; Z90.49 Acquired absence of other specified parts of digestive tract; F17.210 Nicotine dependence, cigarettes, uncomplicated; E87.6 Hypokalemia; E83.42 Hypomagnesemia; F31.9 Bipolar disorder, unspecified; F10.10 Alcohol abuse, uncomplicated
CPT/HCPCS: 36415; 36416; 36600; 71045; 71275; 80048; 80053; 80306; 82533; 82570; 82805; 83690; 83735; 83880; 83930; 83935; 84100; 84300; 84439; 84443; 84481; 84484; 84550; 85025; 85379; 85610; 85730; 87040; 93005; 93010; 93306; 94640; 94660; 96365; 96367; 96375; J0360; J1650; J1815; J1940; J1956; J2920; J2930; J3411; J3475; J3480; J7120; J7611; J7620; Q9967

== ENCOUNTER 2024-12-06 12:56 | Emergency (ER) | payer OTHER ==
[2024-12-06 13:45] LABS: #Basophils 0.11 10x3/uL (0.0-0.2); #Eosinophils 0.33 10x3/uL (0.0-0.7); #Monocytes 0.38 10x3/uL (0.11-0.59); #Neutrophils 2.67 10x3/uL (1.40-6.50); %Basophils 1.4 % (0.0-1.0); %Eosinophils 4.2 % (0.0-10.0); %Lymphocytes 55.0 % (21.0-51.0); %Monocytes 4.9 % (0.0-10.0); %Neutrophils 34.1 % (42.0-75.0); Hematocrit 37.7 % (42.0-52.0); Hemoglobin 12.9 g/dL (14.0-18.0); Mean Corpuscular Hemoglobin 30.5 pg (27.0-31.0); Mean Corpuscular Volume 89.1 fL (78.0-98.0); Platelet Count 229 10x3/uL (130-400); Red Blood Cell (RBC) Count 4.23 mill/uL (4.70-6.10); White Blood Cell (WBC) Count 7.83 10x3/uL (4.8-10.8)
[2024-12-06] MEDS ORDERED: Divalproex Sodium 250 MG DR.TAB ONE (13:47)
[2024-12-06 14:05] LABS: Acetaminophen Less than 10 mcg/mL (Less than 10); Salicylate Less than 8.0 mg/dL (Less than 8.0)
[2024-12-06 14:39] LABS: ALT (SGPT) 40 U/L (Less than 45); AST (SGOT) 52 U/L (11-34); Albumin 4.3 g/dL (3.1-4.5); Alkaline Phosphatase 46 U/L (40-110); Anion Gap 20 mmol/L (10-20); BUN (Urea Nitrogen) 19 mg/dL (8.4-25.7); Bilirubin, Total 0.2 mg/dL (0.3-1.2); Calc. Creatinine Clearance 0 mL/min (70-130); Calcium 9.0 mg/dL (7.8-10.44); Carbon Dioxide 21 mmol/L (23-31); Chloride 100 mmol/L (98-107); Globulin 3.5 g/dL (2.4-3.5); Glucose 99 mg/dL (80-115); Potassium 5.4 mmol/L (3.5-5.1); Sodium 136 mmol/L (136-145)
[2024-12-06] MEDS ORDERED: LOKELMA 10 GM PACKET PO SCH (16:15)
[2024-12-06 18:21] LABS: ALT (SGPT) 36 U/L (Less than 45); AST (SGOT) 38 U/L (11-34); Albumin 4.0 g/dL (3.1-4.5); Alkaline Phosphatase 45 U/L (40-110); Anion Gap 16 mmol/L (10-20); BUN (Urea Nitrogen) 18 mg/dL (8.4-25.7); Bilirubin, Total 0.2 mg/dL (0.3-1.2); Calc. Creatinine Clearance 0 mL/min (70-130); Calcium 8.8 mg/dL (7.8-10.44); Carbon Dioxide 24 mmol/L (23-31); Chloride 102 mmol/L (98-107); Globulin 3.3 g/dL (2.4-3.5); Glucose 86 mg/dL (80-115); Potassium 4.2 mmol/L (3.5-5.1); Sodium 138 mmol/L (136-145)
== END 2024-12-07 10:08 ==
LOC: ERS 12:56
DX: R45.851 Suicidal ideations (principal); F10.129 Alcohol abuse with intoxication, unspecified; F17.210 Nicotine dependence, cigarettes, uncomplicated; E11.9 Type 2 diabetes mellitus without complications; J44.9 Chronic obstructive pulmonary disease, unspecified; E03.9 Hypothyroidism, unspecified; Z79.890 Hormone replacement therapy; Z79.899 Other long term (current) drug therapy; Y90.1 Blood alcohol level of 20-39 mg/100 ml
CPT/HCPCS: 36415; 80053; 80307; 85025; 93005; 99285